=== PATIENT | male | born 1985 | race Caucasian/White ===

== ENCOUNTER 2021-09-04 11:37 | Emergency (ER) | payer BC ==
[~2021-09-04] VITALS: Ht 182.9 cm; Wt 84.8 kg
[2021-09-04 11:49] VITALS: BP 143/87
--- NOTE | 2021-09-04 11:55 | NUR ---
PT AMBULATED TO ER BED 2.
--- NOTE | 2021-09-04 12:08 | NUR ---
36/M BIB SELF WITH C/O RECTAL PAIN, STATES HE HAS HAD 3 HEMMORHOIDS SINCE MONDAY, REPORTS USING OTC HEMMORHOID OINTMENT YESTERDAY WITH MILD RELIEF, DENIES BLOOD IN STOOL. SWOLLEN LYMPH NODES L CHEST SINCE MONDAY. DENIES N/V/D; SKIN IS PINK/WARM/DRY; AAOX4 WITH EVEN AND STEADY GAIT; LUNGS CLEAR BL; HR EVEN AND REGULAR; PT DENIES ANY FEVER, CP, SOB, OR COUGH AT THIS TIME; PATIENT STATES PAIN OF 9/10 AT THIS TIME; VSS; PATIENT POSITIONED R SIDE LATERAL FOR COMFORT; BEDRAILS UP X2; BED DOWN. ER MD MADE AWARE OF PT STATUS. PMX: DENIES ALLERGIES: MAYA
[2021-09-04] MEDS ORDERED: KETOROLAC 15 MG/ML VIAL IVP ONE (12:25)
[2021-09-04] MEDS ORDERED: LIDOCAINE JELLY 2% 30 ML TUBE TP ONE (12:25)
[2021-09-04] MEDS ORDERED: ACETAMINOPHEN EXTRA STRENGTH 500 MG TAB PO ONE (12:25)
[2021-09-04 13:10] LABS: BASOPHILS # (AUTO) 0.1 K/uL (0.00-0.22); MEAN CORPUSCULAR HEMOGLOBIN 30 pg (27-31)
[2021-09-04 14:18] LABS: ALBUMIN 3.6 g/dL (3.4-5.0); CARBON DIOXIDE 28.1 mmol/L (21-32); CREATININE 1.2 mg/dL (0.6-1.3); POTASSIUM 4.1 mmol/L (3.5-5.1); TOTAL BILIRUBIN 0.9 mg/dL (0.0-1.0)
--- NOTE | 2021-09-04 14:39 | NUR ---
PT TAKEN TO CT WITH TECH.
--- NOTE | 2021-09-04 15:18 | NUR ---
PT BACK FROM CT
[2021-09-04 15:21] LABS: BASOPHILS % (AUTO) 2.5 % (0.0-2.0); EOSINOPHILS % (AUTO) 0.8 % (0.0-4.0); HEMATOCRIT 35.1 % (36-52); HEMOGLOBIN 11.6 g/dL (12.0-18.0); LYMPHOCYTES # (AUTO) 0.4 K/uL (2.0-11.5); LYMPHOCYTES % (AUTO) 10.8 % (20.5-51.1); MEAN CORPUSCULAR HGB CONC 33 g/dL (33-37); MEAN CORPUSCULAR VOLUME 89.2 fL (80-94); MONOCYTES # (AUTO) 0.5 K/uL (0.8-1.0); MONOCYTES % (AUTO) 13.2 % (1.7-9.3); NEUTROPHILS # (AUTO) 2.7 K/uL (1.8-7.7); NEUTROPHILS % (AUTO) 72.7 % (42.2-75.2); PLATELET COUNT (AUTO) 284 K/uL (140-450); RED BLOOD CELL COUNT(AUTO) 3.93 MIL/uL (4.20-6.10); RED CELL DISTRIBUTION WIDTH 15.7 % (11.6-13.7); WHITE BLOOD COUNT (AUTO) 3.7 K/uL (4.8-10.8)
[2021-09-04] MEDS ORDERED: PHEN28OI6 TP (16:41)
[2021-09-04 17:13] VITALS: BP 143/87
--- NOTE | 2021-09-04 17:14 | NUR ---
Patient discharged with v/s stable. Written and verbal after care instructions given and explained. Patient alert, oriented and verbalized understanding of instructions. Ambulatory with steady gait. All questions addressed prior to discharge. ID band removed. Patient advised to follow up with PMD. Rx of PREPARATION H given. Patient educated on indication of medication including possible reaction and side effects. Opportunity to ask questions provided and answered.
== END 2021-09-04 17:14 | disposition home or self-care (01) ==
LOC: MED 11:37
DX: K64.5 Perianal venous thrombosis (principal); R59.0 Localized enlarged lymph nodes; F17.210 Nicotine dependence, cigarettes, uncomplicated; Z71.6 Tobacco abuse counseling
CPT/HCPCS: 36415; 71260; 80053; 85025; 96374; 99285; J1885; Q9967